=== PATIENT | female | born 1995 | race Caucasian/White ===

== ENCOUNTER 2022-03-03 11:14 | Emergency (ER) | payer BC ==
[~2022-03-03] VITALS: Ht 162.6 cm; Wt 78.5 kg
--- NOTE | 2022-03-03 11:14 | NUR ---
BROUGHT BACK TO BED #8 AND TRIAGED, REPORT GIVEN TO DAGOBERTO
[2022-03-03 11:15] VITALS: BP_SYST 116
--- NOTE | 2022-03-03 11:20 | NUR ---
PT CAME INTO ER FROM HOME C/O RLQ ABD PAIN INTERMITTENT X 1 WEEK, WORSE WITH URINATION. PT IS AMBULATORY, AAOX4, VSS
--- NOTE | 2022-03-03 12:00 | NUR ---
PT ABLE TO AMBULATE TO BATHROOM WITH STEADY GAIT TO PROVIDE URINE SAMPLE
[2022-03-03 12:14] LABS: BILIRUBIN,URINE NEGATIVE (NEGATIVE); BLOOD, URINE NEGATIVE (NEGATIVE); CLARITY/URINE CLEAR (CLEAR); COLOR,URINE YELLOW (YELLOW); GLUCOSE,URINE NEGATIVE (NEGATIVE); KETONES,URINE NEGATIVE (NEGATIVE); LEUKOCYTE ESTERASE ,URINE NEGATIVE (NEGATIVE); NITRITE, URINE NEGATIVE (NEGATIVE); PROTEIN URINE NEGATIVE (NEGATIVE); UROBILINOGEN,URINE 0.2 (0.2-1.0)
--- NOTE | 2022-03-03 12:20 | NUR ---
ER DR. العلي AT THE BEDSIDE EXAMINING PT
[2022-03-03 13:03] LABS: BASOPHILS % (AUTO) 0.6 % (0.0-2.0); EOSINOPHILS # (AUTO) 0.1 K/uL (0.0-0.4); EOSINOPHILS % (AUTO) 1.7 % (0.0-4.0); HEMATOCRIT 38.1 % (36-48); HEMOGLOBIN 13.3 g/dL (12.0-16.0); LYMPHOCYTES # (AUTO) 1.4 K/uL (1.0-5.5); LYMPHOCYTES % (AUTO) 20.7 % (20.5-51.5); MEAN CORPUSCULAR HEMOGLOBIN 30 pg (27-31); MEAN CORPUSCULAR HGB CONC 35 % (32-36); MEAN CORPUSCULAR VOLUME 85 fL (79.0-98.0); MONOCYTES # (AUTO) 0.3 K/uL (0.0-1.0); MONOCYTES % (AUTO) 4.7 % (1.7-9.3); NEUTROPHILS % (AUTO) 72.3 % (40.0-70.0); PLATELET COUNT (AUTO) 231 K/uL (130-430); RED BLOOD CELL COUNT(AUTO) 4.49 MIL/uL (4.2-6.2); RED CELL DISTRIBUTION WIDTH 12.3 % (9.0-15.0)
[2022-03-03 13:20] LABS: CALCIUM 8.6 mg/dL (8.4-11.0); CREATININE 0.81 mg/dL (0.55-1.30); POTASSIUM 4.2 mmol/L (3.5-5.1)
[2022-03-03 13:25] LABS: ALBUMIN 3.7 g/dL (3.4-4.8); TOTAL BILIRUBIN 0.3 mg/dL (0.0-1.0)
[2022-03-03] MEDS ORDERED: IBUP-1969 PO (16:49)
[2022-03-03 17:03] VITALS: BP_SYST 116
--- NOTE | 2022-03-03 17:04 | NUR ---
Patient given written and verbal discharge instructions and verbalizes understanding. ER MD discussed with patient the results and treatment provided. Patient in stable condition. ID arm band removed. Rx of IBUPROFEN given. Patient educated on pain management and to follow up with PMD. Pain Scale 0/10. Opportunity for questions provided and answered. Medication side effect fact sheet provided.
== END 2022-03-03 17:04 | disposition home or self-care (01) ==
LOC: SED 11:14
DX: N83.201 Unspecified ovarian cyst, right side (principal)
CPT/HCPCS: 36415; 76376; 76856-TC; 80053; 81003; 81025; 85025; 99284